=== PATIENT | female | born 1940 | race Caucasian/White ===

== ENCOUNTER 2021-12-01 20:54 | Emergency (ER) | payer MEDICARE, OTHER ==
[~2021-12-01] VITALS: Ht 157.5 cm; Wt 74.8 kg
[2021-12-01 20:55] VITALS: BP 137/71
== END 2021-12-01 23:35 | disposition left against medical advice (07) ==
LOC: ER 20:54
DX: M79.672 Pain in left foot (principal); M79.89 Other specified soft tissue disorders; Z53.21 Procedure and treatment not carried out due to patient leaving prior to being seen by health care provider
CPT/HCPCS: 73610; 73630

== ENCOUNTER 2021-12-03 06:08 | Emergency (ER) | payer MEDICARE, MEDICAID ==
[~2021-12-03] VITALS: Ht 157.5 cm; Wt 74.8 kg
[2021-12-03 06:52] VITALS: BP 133/67
== END 2021-12-03 08:28 | disposition home or self-care (01) ==
LOC: ER 06:08
DX: S96.912A Strain of unspecified muscle and tendon at ankle and foot level, left foot, initial encounter (principal); J45.909 Unspecified asthma, uncomplicated; I10 Essential (primary) hypertension; W10.2XXA Fall (on)(from) incline, initial encounter; Y93.01 Activity, walking, marching and hiking; Y92.89 Other specified places as the place of occurrence of the external cause; Y99.8 Other external cause status
CPT/HCPCS: 93971

== ENCOUNTER → 2022-08-17 | Emergency (ER) | payer MEDICARE, MEDICAID ==
[~2022-08-17] VITALS: Ht 157.5 cm; Wt 65.0 kg
[2022-08-17 13:20] VITALS: BP 85/35
== END | disposition left against medical advice (07) ==
LOC: EDUNIT# 13:04 → EDBD 13:18 → ER 13:18
DX: S00.83XA Contusion of other part of head, initial encounter (principal); R07.89 Other chest pain; Z53.21 Procedure and treatment not carried out due to patient leaving prior to being seen by health care provider; W01.0XXA Fall on same level from slipping, tripping and stumbling without subsequent striking against object, initial encounter; Y93.89 Activity, other specified; Y92.89 Other specified places as the place of occurrence of the external cause; Y99.8 Other external cause status
CPT/HCPCS: 93005